=== PATIENT | female | born 1985 | race Caucasian/White ===

== ENCOUNTER 2021-07-16 15:29 | Emergency (ER) | payer SELFPAY ==
[~2021-07-16] VITALS: Ht 167.6 cm; Wt 68.2 kg
[~2021-07-16 15:29] MED LIST: NAPR-56 PO
[2021-07-16 15:35] VITALS: BP 122/83
== END 2021-07-16 17:08 | disposition left against medical advice (07) ==
LOC: ER 15:29
DX: Z53.21 Procedure and treatment not carried out due to patient leaving prior to being seen by health care provider (principal)